=== PATIENT | female | born 1960 | race Caucasian/White ===

== ENCOUNTER → 2021-04-18 | Outpatient (CLI) | payer MEDICARE, OTHER ==
[2021-04-18 13:11] LABS: HEMOGLOBIN 11.5 gm/dl (12.3-15.3); RED BLOOD COUNT 3.76 M/UL (4.00-5.10); WHITE BLOOD COUNT 3.5 K/UL (4.5-11.0)
[2021-04-19 11:14] LABS: COMPLEMENT C3, SERUM 131 mg/dL (82-167); COMPLEMENT C4, SERUM 24 mg/dL (12-38)
== END ==
LOC: LAB 11:04
PROVIDERS: Internal Medicine
DX: I73.00 Raynaud's syndrome without gangrene (principal); M25.50 Pain in unspecified joint; R76.0 Raised antibody titer
CPT/HCPCS: 36415; 80053; 85025; 86160

== ENCOUNTER → 2021-04-20 | Outpatient (CLI) | payer MEDICARE, OTHER | LOC: LAB 12:11 | PROVIDERS: Family Medicine | DX: I73.00 Raynaud's syndrome without gangrene (principal) | CPT/HCPCS: 36415; 82595 ==